=== PATIENT | male | born 1945 | race Caucasian/White ===

== ENCOUNTER 2019-04-29 05:10 | Day surgery (SDC) ==
--- NOTE | 2019-04-22 10:13 | EKG Report ---
Test Performed on : 04/22/2019 10:05:27 AM Test Reason : PAT Blood Pressure : / mmHG Vent. Rate : 067 BPM Atrial Rate : 067 BPM P-R Int : 182 ms QRS Dur : 086 ms QT Int : 406 ms P-R-T Axes : 069 028 067 degrees QTc Int : 429 ms Normal sinus rhythm. Normal ECG No previous ECGs available Confirmed by Jerad Hernandez MD ([id number]) on 04/23/2019 12:59:51 PM
[2019-04-22 10:28] LABS: HEMATOCRIT 46.6 % (42.0-52.0); HEMOGLOBIN 16.2 g/dL (14.0-18.0); MCH 30.4 PG (27-31); MCHC 34.8 g/dL (33-37); MCV 87.4 FL (81-99); MPV 9.2 FL (7.4-10.4); RBC 5.33 XMIL (4.7-6.1); RDW 13.6 % (11.5-14.5); WBC 6.59 X1000 (4.8-10.8)
[2019-04-22 10:30] LABS: INR 1.13; PROTIME 14.7 Seconds (11.0-16.0); PTT 28.9 Seconds (22.3-41.8)
[2019-04-22 11:13] LABS: CALCIUM 10.1 mg/dL (8.8-10.2); CREATININE 1.5 mg/dL (0.7-1.2); POTASSIUM 4.5 mmol/L (3.5-5.1)
[2019-04-29] MEDS ORDERED: KEFZOL 1 GM/D5W 2 GM/100 ML IVPB ONE (06:09)
[2019-04-29] MEDS ORDERED: LR 1,000 ML ONE ×2 (06:09→06:27)
[2019-04-29] MEDS ORDERED: PEPCID ONE (06:09)
[2019-04-29] MEDS ORDERED: ROBINUL ONE (06:26)
[2019-04-29] MEDS ORDERED: QUELICIN (DOSE) ONE (06:26)
[2019-04-29] MEDS ORDERED: DIPRIVAN 1% ONE (06:26)
[2019-04-29] MEDS ORDERED: XYLOCAINE-MPF 2% ONE (06:26)
[2019-04-29] MEDS ORDERED: SENSORCAINE 0.25%/EPI 1:200,000 ONE (06:27)
[2019-04-29] MEDS ORDERED: B & O 16A SUPP ONE (06:27)
[2019-04-29] MEDS ORDERED: BRIDION ONE (06:55)
[2019-04-29] MEDS ORDERED: SODIUM CHLORIDE 0.9% 10 ML ONE (06:57)
[2019-04-29] MEDS ORDERED: EXPAREL 1.3% ONE (06:57)
[2019-04-29] MEDS ORDERED: OFIRMEV 1000 MG/ISOTONIC SOLN 1,000 MG/100 ML BOTTLE ONE (07:09)
[2019-04-29] MEDS ORDERED: TORADOL ONE (07:09)
[2019-04-29] MEDS ORDERED: ZEMURON ONE ×4 (07:09→09:16)
[2019-04-29] MEDS ORDERED: ZOFRAN ONE (07:09)
[2019-04-29] MEDS: MARCAINE 0.25% ONE ×2 (07:50→19:35)
[2019-04-29 08:08] LABS: URINE SOURCE CATH
[2019-04-29 08:16] LABS: BILIRUBIN URINE NEGATIVE (NEGATIVE); BLOOD URINE NEGATIVE (NEGATIVE); COLOR STRAW; GLUCOSE URINE NEGATIVE (NEGATIVE); KETONE URINE NEGATIVE (NEGATIVE); LEUKOCYTES URINE NEGATIVE (NEGATIVE); NITRITE URINE NEGATIVE (NEGATIVE); PROTEIN URINE NEGATIVE (NEGATIVE); SP GRAVITY URINE 1.007; TURBIDITY URINE CLEAR (CLEAR); UR EPITHELIAL CELLS <10 /HPF (<10); URINE BACTERIA NEGATIVE /HPF; URINE RBC <10 /HPF (<10); URINE WBC <10 /HPF (<10); UROBILINOGEN URINE NORMAL (NORMAL)
[2019-04-29] MEDS ORDERED: DILAUDID ONE (09:37)
[2019-04-29] MEDS ORDERED: NS 1,000 ML ONE (10:10)
[2019-04-29] MEDS ORDERED: SODIUM CHLORIDE 0.9% INJ PRN (10:30)
[2019-04-29] MEDS ORDERED: B & O 15A SUPP PR PRN (10:30)
[2019-04-29] MEDS ORDERED: DITROPAN PO PRN (10:30)
[2019-04-29] MEDS ORDERED: NORCO-7.5 PO PRN (10:30)
[2019-04-29] MEDS ORDERED: PHENERGAN PO PRN (10:30)
[2019-04-29] MEDS ORDERED: PHENERGAN PR PRN (10:30)
[2019-04-29] MEDS ORDERED: LABETALOL IV PRN (10:30)
[2019-04-29] MEDS ORDERED: NORCO-5 PO PRN (10:30)
[2019-04-29] MEDS ORDERED: BENADRYL LIQUID PO PRN (10:30)
[2019-04-29] MEDS ORDERED: BENADRYL IV PRN (10:30)
[2019-04-29] MEDS ORDERED: PHENERGAN IV PRN (10:30)
[2019-04-29] MEDS ORDERED: OFIRMEV 1000 MG/ISOTONIC SOLN 1,000 MG/100 ML BOTTLE IV PRN (10:30)
[2019-04-29] MEDS ORDERED: TYLENOL PO PRN (10:30)
[2019-04-29] MEDS: NS 1,000 ML IV SCH ×2 (11:46→22:49)
--- NOTE | 2019-04-29 12:53 | OPERATIVE NOTE ---
PROCEDURE DATE: 04/29/2019 SURGEON: Juan C Tabor MD HEALTH NURSE: Dr. Dawson Bond. Please note that Dr. Bond was present throughout the entire operation and assisted every critical step. INDICATIONS: A 74-year-old male who presented with elevated PSA. 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 He wants to proceed with definitive surgical intervention. FINDINGS: The original 18-[place] Servin catheter was difficult to insert, but we were able to do so. During introducing the catheter back in forth at the time of the anastomosis, it was very difficult to perform. Hence, I used a Sensor wire and a 16-[place] Councill tip catheter as opposed to its traditionally 18-[place] Servin catheter. We kept the 16-[place] Patten tip catheter as a final one. Watertight vesicourethral anastomosis at the conclusion of the case at 240 mL. PROCEDURE IN DETAIL: After obtaining informed consent, the patient was brought to the operating room. Perioperative antibiotics and general endotracheal anesthesia were administered. He was placed in lithotomy position, prepped and draped in sterile fashion. An 18-[place] Servin catheter was introduced. Again we had somewhat of difficulty, but I was eventually able to introduce and bladder was drained. A small stab incision was then used in the umbilicus followed by introduction of Veress needle and connected to saline-filled syringe. We confirmed positive drop test, followed by aspiration of fluid in the syringe without any evidence of GI contents or blood. We then insufflated pneumoperitoneum pressure to 15 mmHg. The trocar sites were marked out in a standard prostatectomy fashion. Next, 10 mL of 0.25% Marcaine with epinephrine were used for local anesthetic. We then made incision with Bovie electrocautery supraumbilically, and introduced 12 mm camera trocar followed by insertion of the camera. The entire peritoneal cavity was examined, and he did not have any evidence of scarring. He was placed in Trendelenburg position, and the rest of the trocars were placed under direct vision. Following that, we docked the robot. We began by incising the peritoneum 3 cm above the rectum, and identified, dissected, and transected the right vas deferens. This was followed by identification and dissection of the right seminal vesicle. We used judicious cautery in order not to injure neurovascular bundle. We then performed the same thing on the left side. This was followed by dissection anterior to vas deferens to the level of prostate and posterior through the Denonvilliers' fascia to the level of perirectal plane. Attention was then turned to dropping the bladder. We incised lateral to each medial umbilical ligament which allowed us to gain access to the space of Retzius. We then exposed endopelvic fascia and cleared off the fat. Superficial dorsal venous complex was controlled with 0 V-Loc suture. Deep dorsal venous complex was controlled with 0 V-Loc suture in a [id number] fashion with periosteal elevation. Prior to doing that, we incised along the edge of the prostate through endopelvic fascia and followed the contour of the prostate dividing sharply puboprostatic ligaments. Once that was done, we turned attention to the bladder neck. We used gentle tugging with a Servin balloon in place to identify the bladder neck. Monopolar cautery was used to incise the bladder neck until the circumferential fibers and Servin catheter was seen. The Servin catheter was brought into the operative field and placed in anterior traction. We then incised the bladder neck circumferentially and developed the plane between the bladder and the prostate. Following that, we continued dissection until vas deferens seminal vesicles came into the view. After that, we brought the vas deferens and seminal vesicles into the field and placed in anterior traction with the fourth arm. He did not have any positive samples on the left side. Hence, we decided to perform nerve sparing on the left side. I performed intrafascial dissection, and freed up the fascia overlying the prostate. We used hemoclips to reflect the neurovascular bundle without the use of cautery. We then performed the same thing on the right side. There, I performed extra press fascial dissection as his disease was on the right side. That neurovascular bundle was reflected as well with the use of Hem-O-Stephanie clips. We then dissected posterior to the prostate followed by transection of the prostatic apex. The urethra came into the view, and was sharply divided. We then confirmed hemostasis with irrigation and decreased pneumoperitoneal pressure. Attention was then taken to pelvic lymph node dissection. On the right side, we identified the external iliac vein going to its confluence with the common iliac vein. We grasped the lymphatic packet, and dissected it with the following boundaries. Pelvic sidewall laterally, perivesical fat medially, external iliac vein superiorly up to its confluence with the common iliac vein, and obturator vein artery and nerve posteriorly. Please note that I was able to visualize the obturator nerve in its entirety. Hemostasis was obtained all the way. A small piece of Surgicel hemostatic agent was then placed in the lymphadenectomy bed. We then performed the same thing on the left side with identical boundaries being pelvic sidewall laterally, perivesical fat medially, external iliac vein up to its confluence with the common iliac vein superiorly, and obturator nerve and vessels posteriorly. Please note that again on the left side. I was able to visualize the entire obturator nerve. The lymphatic tissue was placed into EndoCatch bag as well as the prostate. We placed a piece of Surgicel into the lymphadenectomy bed and decreased pneumatic pressure to 3 mmHg without any evidence of active bleeding. Attention was then turned to the Carlos Eduardo stitch. Three 0 V-Loc suture was used to reapproximate perivesical and periurethral fascia in a clockwise and counterclockwise fashion with the sutures preserved for future laparoscopic suspension. We then performed vesicourethral anastomosis with another 3-0 V-Loc suture in a running fashion in a clockwise counter-clockwise direction subsequent cross tying the sutures. Given the fact that it was not easy to introduce back and forth the 18-[place] catheter, it was switched to a Sensor wire followed by introduction of 16- [place] Patten tip Servin. Once the anastomosis was completed, the 16-[place] Councill tip Servin was introduced with 10 mL of sterile water instilled in the balloon. We tested the anastomosis by instilling 240 mL of sterile fluid. There was no evidence of leak. I then decreased pneumo pressure to 3 mmHg. There was no evidence of bleeding. The entire operative field was inspected. There was no evidence of injury to adjacent structures. The robot was then undocked. We extended the supraumbilical incision, and delivered the prostate and lymph nodes which were sent off to pathology. The wounds were copiously irrigated. #1 Maxon suture was used to close the supraumbilical fascia in a running fashion. A 0 Vicryl suture was used to close 12 mm trocar fascia in a [id number] fashion. Wounds were irrigated again. The 4-0 Monocryl sutures were used for subcuticular closure followed by application of Covidien adhesive agent. His Servin catheter was placed to gravity drainage. He was extubated and taken to PACU for further recovery. Prior to extracting the prostate and undocking the robot, we performed laparoscopic urethral suspension by using previously placed Carlos Eduardo sutures and threading them through the periosteum just lateral to the midline pubis and suspended the urethra. ESTIMATED BLOOD LOSS: 75 mL. COMPLICATIONS: None. DRAINS: 16-[place] Councill tip Servin catheter. SPECIMENS: 1. Prostate. 2. Pelvic lymph nodes. DISPOSITION: To PACU and subsequently floor for observation. cc: Juan C Tabor MD
[2019-04-29] MEDS: DILAUDID IV PRN ×2 (13:10→19:32)
[2019-04-29] MEDS: KEFZOL 2 GM/D5W 2 GM/50 ML IVPB IV SCH ×2 (14:31→22:44)
[2019-04-29] MEDS: ZOFRAN IV PRN ×2 (14:37→19:32)
[2019-04-29] MEDS: NORVASC PO SCH ×2 (19:46→22:50)
[2019-04-29] MEDS: SINGULAIR PO SCH ×2 (19:46→22:50)
[2019-04-29] MEDS: CRESTOR PO SCH ×2 (19:46→22:50)
[2019-04-29] MEDS: TRICOR PO SCH ×2 (19:46→22:50)
[2019-04-29] MEDS: COLACE PO SCH ×2 (19:46→22:51)
[2019-04-29] MEDS: PERIDEX MT SCH ×2 (19:47→22:50)
[2019-04-29] MEDS: ATARAX PO SCH ×2 (19:47→22:51)
[2019-04-29] MEDS ORDERED: PATIENT'S OWN MED BOTH EYES SCH (21:00)
[2019-04-29] MEDS: NORCO-10 PO PRN (22:48)
[2019-04-29] MEDS: KLOR-CON PO SCH (22:50)
[2019-04-30] MEDS: DILAUDID IV PRN ×2 (03:54→06:07)
[2019-04-30 06:00] LABS: HEMATOCRIT 39.2 % (42.0-52.0); HEMOGLOBIN 13.5 g/dL (14.0-18.0); MCH 30.7 PG (27-31); MCHC 34.4 g/dL (33-37); MCV 89.1 FL (81-99); MPV 9.5 FL (7.4-10.4); RBC 4.4 XMIL (4.7-6.1); RDW 13.4 % (11.5-14.5); WBC 8.33 X1000 (4.8-10.8)
[2019-04-30] MEDS: KEFZOL 2 GM/D5W 2 GM/50 ML IVPB IV SCH (06:01)
[2019-04-30 06:21] LABS: AGAP 10; BUN 9 mg/dL (8-22); CALCIUM 7.9 mg/dL (8.8-10.2); CHLORIDE 107 mmol/L (98-107); COSMO 289; CREATININE 0.8 mg/dL (0.7-1.2); ESTIMATED GFR > 60; GLUCOSE 160 mg/dL (70-104); POTASSIUM 3.8 mmol/L (3.5-5.1); SODIUM 144 mmol/L (136-145); TCO2 27 mmol/L (25-35)
[2019-04-30] MEDS ORDERED: PROTONIX PO SCH (07:00)
[2019-04-30 07:31] VITALS: BP 157/79
[2019-04-30] MEDS ORDERED: PATIENT'S OWN MED BOTH EYES SCH (09:00)
[2019-04-30] MEDS ORDERED: BENADRYL PO SCH (09:00)
[2019-04-30] MEDS: NORCO-10 PO PRN (09:13)
[2019-04-30] MEDS: KLOR-CON PO SCH (09:14)
[2019-04-30] MEDS: PERIDEX MT SCH (09:14)
[2019-04-30] MEDS: NS 1,000 ML IV SCH (09:15)
[2019-04-30] MEDS: ATARAX PO SCH (09:15)
[2019-04-30] MEDS: COLACE PO SCH (09:15)
[2019-04-30] MEDS: ZOFRAN IV PRN (09:18)
== END 2019-04-30 11:13 | disposition home or self-care (01) ==
LOC: OR 05:10 → 4N 05:10 → OR 04-30 11:13
PROVIDERS: ATTEND Urology